=== PATIENT | female | born 1960 | race Caucasian/White ===

== ENCOUNTER 2023-07-23 05:10 | Emergency (ER) | payer OTHER ==
[~2023-07-23] VITALS: Ht 157.5 cm; Wt 102.5 kg
[2023-07-23] MEDS ORDERED: OXYC-592 PO (05:36)
[2023-07-23] MEDS ORDERED: APIX5TAB PO (05:36)
[2023-07-23] MEDS ORDERED: ALBU6.7H9 INH (05:36)
[2023-07-23] MEDS ORDERED: MORP30TA7 PO (05:36)
[2023-07-23] MEDS ORDERED: CEFEPIME HCL 1 G VIAL ONE (05:46)
[2023-07-23] MEDS ORDERED: ACETAMINOPHEN 325 MG TABLET ONE (05:46)
[2023-07-23] MEDS: ACETAMINOPHEN 325 MG TABLET PO ONE (05:54)
[2023-07-23] MEDS: CEFEPIME HCL 2 G in IV DEXTROSE 5% 100 ML IV ONE (05:54)
[2023-07-23 06:36] LABS: BASOPHILS % (AUTO) 0.4 % (0.0-2.0); EOSINOPHILS # (AUTO) 0.1 K/uL (0.0-0.7); EOSINOPHILS % (AUTO) 0.7 % (0.0-7.0); HEMATOCRIT 32.4 % (31.2-41.9); HEMOGLOBIN 10.8 g/dL (10.9-14.3); LYMPHOCYTES # (AUTO) 0.7 K/uL (0.8-4.8); LYMPHOCYTES % (AUTO) 9.3 % (20.5-51.5); MEAN CORPUSCULAR HEMOGLOBIN 32.6 uug (24.7-32.8); MEAN CORPUSCULAR HGB CONC 33 g/dL (32.3-35.6); MEAN CORPUSCULAR VOLUME 97.8 fL (75.5-95.3); MONOCYTES # (AUTO) 0.7 K/uL (0.1-1.30); NEUTROPHILS # (AUTO) 6.3 K/uL (1.8-8.9); NEUTROPHILS % (AUTO) 80.6 % (38.5-71.5); PLATELET COUNT (AUTO) 152 K/uL (179-408); RED BLOOD CELL COUNT(AUTO) 3.32 MIL/uL (3.63-4.92); RED CELL DISTRIBUTION WIDTH 13.9 % (12.3-17.7); WHITE BLOOD COUNT (AUTO) 7.8 K/uL (3.8-11.8)
[2023-07-23 06:45] LABS: CALCIUM 8.6 mg/dL (8.5-10.1); CARBON DIOXIDE 29 mmol/L (21-32); CHLORIDE 102 mmol/L (98-107); CREATININE 0.8 mg/dL (0.6-1.3); GLUCOSE 101 mg/dL (74-106); POTASSIUM 3.5 mmol/L (3.5-5.1); SODIUM SERUM 140 mmol/L (136-145); UREA NITROGEN, BLOOD 11 mg/dL (7-18)
[2023-07-23 06:50] LABS: DIFFERENTIAL COMMENT 1
[2023-07-23 06:58] LABS: ALANINE AMINOTRANSFERASE 18 U/L (14-59); ALKALINE PHOSPHATASE 74 U/L (50-136); ASPARTATE AMINOTRANSFERASE 21 U/L (15-37); BILIRUBIN,DIRECT 0.1 mg/dL (0.0-0.2); BILIRUBIN,TOTAL 0.3 mg/dL (0.2-1.0); NT-PRO BNP 157 pg/mL (0-125); TOTAL PROTEIN, SERUM 6.9 g/dL (6.4-8.2)
[2023-07-23] MEDS ORDERED: ONDANSETRON 4 MG/2 ML VIAL ONE (07:20)
[2023-07-23] MEDS ORDERED: MORPHINE SULFATE 4 MG/1 ML DISP.SYRIN ONE (07:21)
[2023-07-23] MEDS: MORPHINE SULFATE 4 MG/1 ML DISP.SYRIN IV ONE (07:29)
[2023-07-23] MEDS: ONDANSETRON 4 MG/2 ML VIAL IV ONE (07:29)
[2023-07-23] MEDS ORDERED: METH4TAB3 PO (09:46)
[2023-07-23] MEDS ORDERED: DEXAMETHASONE SOD PHOSPHATE 10 MG INJ ONE (09:50)
[2023-07-23] MEDS: DEXAMETHASONE SOD PHOSPHATE 4 MG INJ IV ONE (10:04)
[2023-07-23 10:06] VITALS: BP 137/80; TEMP 98; O2SAT 99
== END 2023-07-23 10:33 | disposition home or self-care (01) ==
LOC: ER 05:12
DX: C34.90 Malignant neoplasm of unspecified part of unspecified bronchus or lung (principal); C78.7 Secondary malignant neoplasm of liver and intrahepatic bile duct; C79.00 Secondary malignant neoplasm of unspecified kidney and renal pelvis; R06.00 Dyspnea, unspecified; R50.9 Fever, unspecified; Z79.899 Other long term (current) drug therapy
CPT/HCPCS: 99285; 96365; 96375; 71045; 80076; 80048; 83880; 85025; 85379; 85610; 87040 ×2; 84484; 36415; 93005; 83605; J0692; J1100; J2405; J2270; A4606; A4663